=== PATIENT | female | born 1960 | race Caucasian/White ===

== ENCOUNTER 2021-06-13 20:12 | Inpatient (IN) | payer BC, SELFPAY ==
[2021-06-13] VITALS (11 sets, daily range): BP systolic 116–171; BP diastolic 54–97; PULSE 89–100; RESP 12–20; TEMP 36.8–38.1; O2SAT 94–99
--- NOTE | 2021-06-13 20:21 | DI.RAD.S_ITS ---
PROCEDURE: XR CHEST 1V INDICATIONS: suspected sepsis TECHNIQUE: One view of the chest was acquired. COMPARISON: None. FINDINGS: Surgical changes and devices: None. Lungs and pleura: Diffusely coarse interstitial markings. No focal consolidations. Mild peribronchial thickening. No effusion or pneumothorax. Mediastinum: Mediastinal contours appear normal. The heart is mildly enlarged. Bones and chest wall: No suspicious bony lesions. Overlying soft tissues appear unremarkable. IMPRESSION: 1. Mild peribronchial thickening and diffuse interstitial thickening may indicate a viral pneumonitis. No dense consolidations. 2. Mild cardiomegaly without CHF. Dictated by: Nga Carpenter M.D. on 06/13/2021 at 21:24 Approved by: Nga Carpenter M.D. on 06/13/2021 at 21:25
[2021-06-13] MEDS: SODIUM CHLORIDE 0.9% 2,313.33 ML 771.11 ML IV (20:35)
[2021-06-13] MEDS: KETOROLAC 30 MG/ML VIAL 15 MG IV (20:36)
[2021-06-13] MEDS: METOCLOPRAMIDE 10 MG/2 ML INJ IV (20:37)
[2021-06-13 20:56] LABS: Add Manual Diff / Slide Review NO; Basophils Absolute Auto 0 /uL (0-100); Basophils Percent Auto 0.1 % (0-2); Eosinophils Absolute Auto 100 /uL (0-450); Eosinophils Percent Auto 0.5 % (2-4); Hematocrit 40.9 % (36-46); Hemoglobin 13.7 g/dL (12.0-16.0); Lymphocytes Absolute Auto 800 /uL (1100-4500); Lymphocytes Percent Auto 6.5 % (25-40); Mean Corpuscular HGB Conc 33.4 % (30-36); Mean Corpuscular Hemoglobin 28.7 PG (26-34); Mean Corpuscular Volume 86.1 fL (80-100); Monocytes Absolute Auto 600 /uL (0-900); Monocytes Percent Auto 4.5 % (3-14); Neutrophils Absolute Auto 11400 /uL (1500-7000); Neutrophils Percent Auto 88.4 % (50-75); Platelet Count 190 X10^3/uL (150-400); Red Blood Cell Count 4.75 X10^6/uL (4.0-5.2); Red Cell Distribution Width 13.8 % (11.6-14.8); White Blood Cell Count 12.8 X10^3/uL (4.5-11.0)
--- NOTE | 2021-06-13 20:57 | PC.NURSE ---
Pt was recently dx with pancreatitis and a kidney stone. Hx of kidney stones. Was not started on an antbx on Monday.
[2021-06-13 21:03] LABS: Appearance Urine UA CLEAR; Bacteria Urine None Seen; Bilirubin Urine UA NEGATIVE (NEGATIVE); Color Urine UA YELLOW; Glucose Urine UA 1+ g/dL (Negative); Ketones Urine UA 3+ (NEGATIVE); Leukocyte Esterase Urine UA NEGATIVE (NEGATIVE); Nitrite Urine UA NEGATIVE (Negative); Occult Blood Urine UA TRACE-INTACT (Negative); Protein Urine UA TRACE (Negative); Urobilinogen Urine UA 0.2 E.U./dL (0.2)
[2021-06-13 21:06] LABS: Lactate (Lactic Acid) 1.2 mmol/L (0.7-2.1)
[2021-06-13 21:08] LABS: Alanine Aminotransferase 21 IU/L (<35); Albumin 4.5 g/dL (3.5-5.0); Albumin Globulin Ratio 1.5 (1.0-2.8); Alkaline Phosphatase 87 U/L (38-126); Aspartate Aminotransferase 29 IU/L (14-36); BUN Creatinine Ratio 22.6 (6-22); Bilirubin Total 0.7 mg/dL (0.2-1.3); Blood Urea Nitrogen 21 mg/dL (7-17); Calcium 9.5 mg/dL (8.4-10.2); Carbon Dioxide 21 mmol/L (22-32); Chloride 96 mmol/L (98-107); Estimated Glomerular Filt Rate > 60.0 mL/min (>60); Glucose 292 mg/dL (70-100); HEMOLYSIS 28 (0-50); Lipase 1042 U/L (23-300); Potassium 4.7 mmol/L (3.4-5.1); Sodium 132 mmol/L (137-145); Total Protein 7.5 g/dL (6.3-8.2)
[2021-06-13 21:09] LABS: Culture Indicated Urine Cult Not Indicated; RBC Urine 0-1/HPF (0-5/HPF); Squamous Epithelial Cell Urine 0-1 /HPF (0-5/HPF); WBC Urine 0-1/HPF (0-5/HPF)
--- NOTE | 2021-06-13 21:24 | DI.CT.S_ITS ---
PROCEDURE: CT ABDOMEN PELVIS W CON INDICATIONS: abdominal pain, fever, pancreatitis, recent kidney ston TECHNIQUE: After the administration of oral and IV contrast, axial sections were acquired from the lung bases to the pubic symphysis. Coronal and sagittal reformats were performed. For radiation dose reduction, the following was used: automated exposure control, adjustment of mA and/or kV according to patient size. COMPARISON: [facility], CT, CT ABDOMEN PELVIS WITH CONTRAST, 06/12/2021, 1:55. FINDINGS: Image quality: Excellent. Lung bases: Unremarkable. Heart: No significant findings. ABDOMEN: Liver: Unremarkable. Gallbladder: Surgically absent Biliary ducts: Unremarkable. Pancreas: Unremarkable. Spleen: Unremarkable. Adrenal Glands: Unremarkable. Kidneys and Ureters: Slight asymmetric uptake of IV contrast in the left kidney compared to the right. Mild hydronephrosis and perinephric inflammation, similar compared to prior. Moderate left hydroureter to the level of the pelvic inlet where a 9 mm stone is present, stable in position. There is slight increase in the degree of periureteric inflammation and inflammatory change around the left pericolic gutter. Punctate nonobstructing right intrarenal calculus. Stomach and Bowel: Stomach, small bowel loops, and colon are unremarkable. Normal appendix. Peritoneum: Mild inflammatory changes extend distally into the pelvis. No freely layering fluid or focal fluid collections. Ventral Wall: No hernia. Abdominal Nodes: No retroperitoneal or mesenteric adenopathy by size criteria. Vessels: Aorta and inferior vena cava are normal in size. PELVIS: Pelvic Organs: Uterus and ovaries are normal. Bladder: Unremarkable. Pelvic Nodes: No enlarged lymph nodes. Miscellaneous: No inguinal hernias are seen. Bones: Degenerative disc calcification at L4-5 and L5-S1. IMPRESSION: 1. Stable position of 9 mm left distal ureteral calcification at the pelvic inlet. 2. Slight worsening of perinephric and left retroperitoneal inflammation without significant change in the degree of hydronephrosis. 3. No movement in nonobstructing right intrarenal calcification. Dictated by: Nga Carpenter M.D. on 06/13/2021 at 22:10 Approved by: Nga Carpenter M.D. on 06/13/2021 at 22:19
[2021-06-13 21:27] LABS: Procalcitonin 0.09 ng/mL (<0.5)
[2021-06-13] MEDS: cefTRIAXone 2,000 MG in SODIUM CHLORIDE 0.9% 100 ML 200 ML IV (21:41)
[2021-06-13] MEDS: CIPROFLOXACIN 400 MG/200 ML PIGGYBACK 200 MG IV (22:13)
--- NOTE | 2021-06-13 23:53 | ED_ITS ---
HPI - Fever General Chief Complaint: Fever Stated Complaint: KIDNEY STONE LEFT SIDE PANCREATITIS FEVER Time Seen by Provider: 06/13/21 20:31 Source: patient Mode of arrival: Ambulatory Limitations: no limitations History of Present Illness HPI Narrative: This is a 60-year-old female who comes in with complaint of known pancreatitis as well as left-sided 9 mm kidney stone with symptoms that started on Monday. Patient was seen at [facility] was started on Flomax, [place] and Zofran with plan to follow-up in [place] after she flew back. Patient developed fever. She was 100.5 here in the department. Patient states she has had pancreatitis in the past and started after she was on Januvia many years a go. She typically does not get pain but has had occasionally. Monday she developed at each epigastric pain, bloating sensation and left flank pain that was sudden onset. She did not have any fevers until today. She has been having nausea and vomiting, she was discharged home from [facility] after being evaluated and continued to have vomiting even with Zofran. She has not had any dysuria, frequency or hematuria that she is appreciated. She has had normal bowel movements. No cough cold or congestion other than a chronic dry cough. No new chest pain or shortness of breath. History significant for sarcoidosis which she states is in her lungs. She is on metformin and occasional short-acting insulin for diabetes, losartan as well as potassium citrate. She does not use a long-acting insulin. She has had a cholecystectomy after her gallbladder became calcified. Cataract surgery and no other recent surgeries. She does have a urologist in [place] which is where she lives. No allergies to medications other than fatigue or makes her feel unwell and no tobacco, alcohol or illicit. Related Data Home Medications Medication Instructions Recorded Confirmed insulin regular human 100 unit/mL 15 sliding scale dose SUBCUT 3XW 06/14/21 06/14/21 injection solution (Novolin R Regular U-100 Insulin) losartan 25 mg tablet (Cozaar) 25 mg PO DAILY 06/14/21 06/14/21 metformin 500 mg tablet,extended 1,000 mg PO BID 06/14/21 06/14/21 release 24 hr potassium citrate 15 mEq (1,620 15 meq PO DAILY 06/14/21 06/14/21 mg) tablet,extended release Previous Rx's Medication Instructions Recorded hydrocodone 5 mg-acetaminophen 300 1 tab PO Q6HR PRN 7 Days #15 tab 06/15/21 mg tablet ondansetron 4 mg disintegrating 4 mg PO TID PRN 14 Days #30 tab 06/15/21 tablet tamsulosin 0.4 mg capsule (Flomax) 0.4 mg PO DAILY 30 Days #30 cap 06/15/21 Allergies Allergy/AdvReac Type Severity Reaction Status Date / Time latex Allergy Intermediate Rash Verified 06/14/21 15:32 promethazine [From Phenergan] AdvReac Intermediate Irritable Verified 06/13/21 21:34 Review of Systems Review of Systems ROS Unobtainable: All systems reviewed & are unremarkable except as noted in HPI and below Patient History Medical History Diabetes type 2, uncontrolled Essential hypertension Recurrent kidney stones Sarcoidosis Surgical History Hx of cataract surgery Hx of cholecystectomy Family History Mother Myocardial infarction CAD (coronary artery disease) Father Myocardial infarction Diabetes mellitus Social History household members: family Smoking Status: Never smoker alcohol intake: never Exam Narrative Exam Narrative: GENERAL: Alert and oriented x three, female in moderate distress. HEENT: Head normocephalic, atraumatic, EOMI, pupils reactive, face symmetric, moist mucous membranes NECK: Supple, full range of motion CARDIOVASCULAR: Regular rate and rhythm without murmurs, rubs or gallops. RESPIRATORY: Breath sounds equal bilaterally, no wheezes rales or rhonchi. ABDOMEN: Soft, nontender. Normoactive bowel sounds all 4 quadrants. No guarding or rebound, rigidity, no mass : No CVA tenderness bilaterally. EXTREMITIES: Normal range of motion, no clubbing or edema. Neurovascularly intact NEUROLOGICAL: Cranial nerves II through XII grossly intact. Moving all extremities SKIN: Warm, dry, no petechiae, no rashes or lesions. Initial Vital Signs Initial Vital Signs: Vital Signs Temperature 100.5 F H 06/13/21 20:21 Pulse Rate 98 H 06/13/21 20:21 Respiratory Rate 20 06/13/21 20:21 Blood Pressure 171/97 H 06/13/21 20:21 Pulse Oximetry 99 06/13/21 20:21 Course Orders Ordered: Discontinued Medications Acetaminophen (Acetaminophen 325 Mg Tablet) 650 mg PO Q6HR PRN PRN Reason: Fever/Mild Pain (1-3) Acetaminophen (Acetaminophen 325 Mg Tablet) 650 mg PO Q4H PRN PRN Reason: Pain, Mild (1-3) Last Admin: 06/15/21 08:03 Dose: 650 mg Documented by: JUAN MANUEL Hydrocodone Bitart/Acetaminophen (Hydrocodone/Acet 5/325 Tablet) 1 tab PO Q6H PRN PRN Reason: pain Last Admin: 06/15/21 08:49 Dose: 1 tab Documented by: JUAN MANUEL Admin: 06/14/21 23:37 Dose: 1 tab Documented by: RICHMOND Cefazolin Sodium (Cefazolin 1 Gm Vial) 2 gm IV NOW ONE Stop: 06/14/21 10:07 Last Admin: 06/14/21 16:25 Dose: 2 gm Documented by: Admin: 06/14/21 10:22 Dose: 2 gm Documented by: CARLTON Dextrose (Dextrose 50 % In Water 25 Gm/50 Ml Syringe) 25 gm IV PRN PRN PRN Reason: Hypoglycemia Dextrose (Dextrose 50 % In Water 25 Gm/50 Ml Syringe) 25 gm IV PRN PRN PRN Reason: Hypoglycemia Dextrose (Dextrose 50 % In Water 25 Gm/50 Ml Syringe) 25 gm IV PRN PRN PRN Reason: Hypoglycemia Diphenhydramine HCl (Diphenhydramine 50 Mg/Ml Vial) 25 mg IV Q6H PRN PRN Reason: Itching Enoxaparin Sodium (Enoxaparin 40 Mg/0.4 Ml Syringe) 40 mg SUBCUT DAILY TRUPTI Fentanyl (Fentanyl 100 Mcg/2 Ml Inj) 0 mcg IV Q5M PRN PRN Reason: Pain, Moderate (4-6) Sodium Chloride (Normal Saline 0.9%) 1,000 mls @ 1,000 mls/hr IV BOLUS ONE Stop: 06/13/21 21:20 Last Admin: 06/13/21 20:40 Dose: Not Given Documented by: CLOVIS Sodium Chloride (Normal Saline 0.9%) 2,313.33 mls @ 771.11 mls/hr 30 ml/kg infuse over 3 hr (2313.33 ml) IV NOW ONE Stop: 06/13/21 23:30 Last Infusion: 06/13/21 23:33 Dose: 0 mls/hr Documented by: Admin: 06/13/21 20:35 Dose: 771.11 mls/hr Documented by: CLOVIS Ciprofloxacin (Cipro) 400 mg in 200 mls @ 200 mls/hr IV NOW ONE Stop: 06/13/21 22:23 Last Infusion: 06/13/21 23:50 Dose: 0 mls/hr Documented by: Admin: 06/13/21 22:13 Dose: 200 mls/hr Documented by: CLOVIS Ceftriaxone Sodium 2,000 mg/ (Sodium Chloride) 100 mls @ 200 mls/hr IV NOW ONE Stop: 06/13/21 21:26 Last Infusion: 06/13/21 22:13 Dose: 0 mls/hr Documented by: Admin: 06/13/21 21:41 Dose: 200 mls/hr Documented by: CLOVIS Sodium Chloride (Normal Saline 0.9%) 1,000 mls @ 125 mls/hr IV CONT TRUPTI Last Admin: 06/14/21 01:55 Dose: 125 mls/hr Documented by: BLANCHE Sodium Chloride (Normal Saline 0.9%) 1,000 mls @ 100 mls/hr IV CONT TRUPTI Last Admin: 06/14/21 02:42 Dose: Not Given Documented by: BLANCHE Ceftriaxone Sodium 1,000 mg/ (Sodium Chloride) 100 mls @ 200 mls/hr IV Q24H TRUPTI Lactated Ringer's (Lactated Ringers) 500 mls @ 25 mls/hr IV CONT TRUPTI Last Admin: 06/14/21 12:30 Dose: 25 mls/hr Documented by: CARLTON Lactated Ringer's (Lactated Ringers) 1,000 mls @ 42 mls/hr IV CONT TRUPTI Last Admin: 06/14/21 19:15 Dose: Not Given Documented by: AUGUSTA Dextrose/Sodium Chloride (Dextrose 5%-0.45% Ns) 1,000 mls @ 125 mls/hr IV CONT TRUPTI Last Infusion: 06/14/21 19:05 Dose: 0 mls/hr Documented by: Admin: 06/14/21 17:58 Dose: 125 mls/hr Documented by: ZACHARY Insulin Glargine (Insulin Glargine 100 Unit/Ml 3ml Pen) 10 unit SUBCUT BID [facility] Last Admin: 06/14/21 10:17 Dose: 10 unit Documented by: CARLTON Cosigned by: ANITHA Admin: 06/14/21 02:56 Dose: 10 unit Documented by: BLANCHE Cosigned by: JAKY Insulin Glargine (Insulin Glargine 100 Unit/Ml 3ml Pen) 10 unit SUBCUT BID [facility] Last Admin: 06/15/21 08:04 Dose: 10 unit Documented by: JUAN MANUEL Hopkinsigned by: CARLTON Admin: 06/14/21 21:48 Dose: 10 unit Documented by: AUGUSTA Cosigned by: ZACHARY Insulin Human Lispro (Insulin Lispro 100 Unit/Ml 3ml Vial) 0 unit SUBCUT [facility]; Protocol Insulin Human Lispro (Insulin Lispro 100 Unit/Ml 3ml Vial) 0 unit SUBCUT [facility]; Protocol Last Admin: 06/14/21 19:15 Dose: Not Given Documented by: Admin: 06/14/21 12:30 Dose: Not Given Documented by: Admin: 06/14/21 10:16 Dose: 3 unit Documented by: CARLTON Reyez by: ANITHA Insulin Human Lispro (Insulin Lispro 100 Unit/Ml 3ml Vial) 0 unit SUBCUT [facility]; Protocol Last Admin: 06/15/21 08:05 Dose: 5 unit Documented by: JUAN MANUEL Hopkisnigned by: CARLTON Admin: 06/14/21 21:47 Dose: 3 unit Documented by: AUGUSTA Cosigned by: ZACHARY Admin: 06/14/21 18:27 Dose: 5 unit Documented by: AUGUSTA Hopkinsigned by: ZACHARY Insulin Human Regular (Insulin Regular 100 Unit/Ml 3 Ml Vial) unit SUBCUT 3XW TRUPTI Ketorolac Tromethamine (Ketorolac 30 Mg/Ml Vial) 15 mg IV NOW ONE Stop: 06/13/21 20:32 Last Admin: 06/13/21 20:36 Dose: 15 mg Documented by: CLOVIS Ketorolac Tromethamine (Ketorolac 30 Mg/Ml Vial) 30 mg IV Q6HR PRN PRN Reason: Pain, Severe (7-10) Stop: 06/19/21 00:40 Ketorolac Tromethamine (Ketorolac 30 Mg/Ml Vial) 15 mg IV Q6HR PRN PRN Reason: Pain, Severe (7-10) Stop: 06/19/21 00:40 Last Admin: 06/14/21 14:22 Dose: 15 mg Documented by: CARLTON Losartan Potassium (Losartan 25 Mg Tablet) 25 mg PO DAILY [facility] Last Admin: 06/15/21 08:32 Dose: 25 mg Documented by: JUAN MANUEL Metformin HCl (Metformin Xr 500 Mg Tablet) 1,000 mg PO BID [facility] Metoclopramide HCl (Metoclopramide 10 Mg/2 Ml Inj) 10 mg IV NOW ONE Stop: 06/13/21 20:32 Last Admin: 06/13/21 20:37 Dose: 10 mg Documented by: CLOVIS Metoclopramide HCl (Metoclopramide 10 Mg/2 Ml Inj) 10 mg IV Q6HR PRN PRN Reason: Nausea And Vomiting Morphine Sulfate (Morphine 2 Mg/Ml Inj) 2 mg IV Q2H PRN PRN Reason: Pain, Severe (7-10) Naloxone HCl (Naloxone 0.4 Mg/Ml Vial) 0.2 mg IV Q2MIN PRN PRN Reason: Opiate Reversal Naloxone HCl (Naloxone 0.4 Mg/Ml Vial) 0.2 mg IV Q2MIN PRN PRN Reason: Opiate Reversal Non-Formulary Medication (Dulaglutide [Trulicity]) 3 mg SUBCUT WEEKLY [facility] Nf - Potassium Citrate 15 Meq Tablet Er 15 meq PO DAILY [facility] Ondansetron HCl (Ondansetron 4 Mg/2 Ml Inj) 4 mg IV Q6HR PRN PRN Reason: Nausea And Vomiting Ondansetron HCl (Ondansetron 4 Mg/2 Ml Inj) 4 mg IV NOW PRN PRN Reason: Nausea And Vomiting Ondansetron HCl (Ondansetron 4 Mg Odt) 4 mg PO TID PRN PRN Reason: nausea. Ondansetron HCl (Ondansetron 4 Mg/2 Ml Inj) 4 mg IV Q6H PRN PRN Reason: Nausea And Vomiting Oxycodone/Acetaminophen (Oxycodone/Acetaminophen 5/325 Tablet) 1 tab PO PACUNOW PRN PRN Reason: Mild or Moderate Pain Oxycodone/Acetaminophen (Oxycodone/Acetaminophen 5/325 Tablet) 1 tab PO Q4H PRN PRN Reason: Pain, Moderate (4-6) Sodium Chloride (Sodium Chloride 0.9% Flush) 10 ml IV PRN PRN PRN Reason: Flush Sodium Chloride (Sodium Chloride 0.9% Flush) 10 ml IV BID [facility] Last Admin: 06/15/21 08:06 Dose: 10 ml Documented by: JUAN MANUEL Tamsulosin HCl (Tamsulosin 0.4 Mg Capsule) 0.4 mg PO NOW ONE Stop: 06/14/21 00:28 Last Admin: 06/14/21 00:37 Dose: 0.4 mg Documented by: CLOVIS Tamsulosin HCl (Tamsulosin 0.4 Mg Capsule) 0.4 mg PO DAILY [facility] Last Admin: 06/15/21 08:03 Dose: 0.4 mg Documented by: JUAN MANUEL Consultations Consultation #1: Dr. Vallejo, with Urology is happy to see patient in the morning. He will have to evaluate if her pancreatitis is any contraindication for her kidney stone. We discussed she has been febrile, she technically meet septic criteria but her procalcitonin is negative with a urine that only shows blood and no other obvious infectious changes. Cultures are pending. Patient was covered with antibiotics but does not appear to be septic from obstructed kidney stone which does not show signs of infection at this time. Consultation #2: AMARA Ferreira, patient is accepted. Discussed patient has multiple issues including pancreatitis with rising lipase, 9 mm kidney stone with stable renal function but patient is febrile, technically meet septic criteria the heart rate of 90, white count 12.8 with a negative procalcitonin and normotensive in the setting of negative ua. Cultures blood and urine are pending. But patient was having uncontrolled pain at home as well as intractable vomiting. We also reviewed patient's chest x-ray which may be secondary to her sarcoid but a COVID testing is pending. Vital Signs Vital signs: Vital Signs - 8 hr 06/13/21 20:21 06/13/21 20:51 06/13/21 20:53 Temperature 100.5 F H Pulse Rate 98 H 98 H 96 H Respiratory Rate 20 19 Blood Pressure 171/97 H 169/73 H Pulse Oximetry 99 96 99 06/13/21 21:00 06/13/21 21:30 06/13/21 21:41 Temperature Pulse Rate 99 H 94 H 100 H Respiratory Rate 20 12 19 Blood Pressure 158/62 H 146/66 H 150/71 H Pulse Oximetry 99 99 98 06/13/21 22:00 06/13/21 22:30 06/13/21 23:00 Temperature Pulse Rate 95 H 91 H 93 H Respiratory Rate 12 16 16 Blood Pressure 143/67 H 116/54 L 129/61 Pulse Oximetry 96 94 99 06/13/21 23:10 06/13/21 23:30 Temperature 98.2 F Pulse Rate 95 H 89 Respiratory Rate 15 17 Blood Pressure 141/64 H 135/62 Pulse Oximetry 97 99 MDM - Fever Lab Data Result diagrams: 06/14/21 12:37 06/14/21 12:37 Labs: Lab Results 06/13/21 06/13/21 06/13/21 Range/Units 20:22 20:22 20:22 WBC 12.8 H (4.5-11.0) X10^3/uL RBC 4.75 (4.0-5.2) X10^6/uL Hgb 13.7 (12.0-16.0) g/dL Hct 40.9 (36-46) % MCV 86.1 (80-100) fL MCH 28.7 (26-34) PG MCHC 33.4 (30-36) % RDW 13.8 (11.6-14.8) % Plt Count 190 (150-400) X10^3/uL Neut % (Auto) 88.4 H (50-75) % Lymph % (Auto) 6.5 L (25-40) % Love % (Auto) 4.5 (3-14) % Eos % (Auto) 0.5 L (2-4) % Baso % (Auto) 0.1 (0-2) % Neut # (Auto) 14594 H (5762-3108) /uL Lymph # (Auto) 800 L (7868-4339) /uL Love # (Auto) 600 (0-900) /uL Eos # (Auto) 100 (0-450) /uL Baso # (Auto) 0 (0-100) /uL Sodium 132 L (137-145) mmol/L Potassium 4.7 (3.4-5.1) mmol/L Chloride 96 L (98-107) mmol/L Carbon Dioxide 21 L (22-32) mmol/L BUN 21 H (7-17) mg/dL Creatinine 0.93 (0.52-1.04) mg/dL Estimated GFR > 60.0 (>60) mL/min BUN/Creatinine Ratio 22.6 H (6-22) Glucose 292 H (70-100) mg/dL Hemoglobin A1c (4.0-6.0) % Lactate 1.2 (0.7-2.1) mmol/L Calcium 9.5 (8.4-10.2) mg/dL Magnesium (1.6-2.3) mg/dL Total Bilirubin 0.7 (0.2-1.3) mg/dL AST 29 (14-36) IU/L ALT 21 (<35) IU/L Alkaline Phosphatase 87 (38-126) U/L Total Protein 7.5 (6.3-8.2) g/dL Albumin 4.5 (3.5-5.0) g/dL Globulin 3.0 (1.7-4.1) g/dL Albumin/Globulin Ratio 1.5 (1.0-2.8) Lipase 1042 H (23-300) U/L Procalcitonin 0.09 (<0.5) ng/mL Urine Color Urine Appearance Urine pH (4.5-8.0) Ur Specific Wil[place] (1.000-1.035) Urine Protein (Negative) Urine Glucose (UA) (Negative) g/dL Urine Ketones (NEGATIVE) Urine Occult Blood (Negative) Urine Nitrate (Negative) Urine Bilirubin (NEGATIVE) Urine Urobilinogen (0.2) E.U./dL Ur Leukocyte Esterase (NEGATIVE) Urine RBC (0-5/HPF) Urine WBC (0-5/HPF) Ur Squamous Epith Cells (0-5/HPF) Urine Bacteria (None) Ur Culture Indicated? SARS-CoV-2 (PCR) (Negative) 06/13/21 06/13/21 06/13/21 Range/Units 20:22 20:22 20:43 WBC (4.5-11.0) X10^3/uL RBC (4.0-5.2) X10^6/uL Hgb (12.0-16.0) g/dL Hct (36-46) % MCV (80-100) fL MCH (26-34) PG MCHC (30-36) % RDW (11.6-14.8) % Plt Count (150-400) X10^3/uL Neut % (Auto) (50-75) % Lymph % (Auto) (25-40) % Love % (Auto) (3-14) % Eos % (Auto) (2-4) % Baso % (Auto) (0-2) % Neut # (Auto) (0115-6780) /uL Lymph # (Auto) (9241-9135) /uL Love # (Auto) (0-900) /uL Eos # (Auto) (0-450) /uL Baso # (Auto) (0-100) /uL Sodium (137-145) mmol/L Potassium (3.4-5.1) mmol/L Chloride (98-107) mmol/L Carbon Dioxide (22-32) mmol/L BUN (7-17) mg/dL Creatinine (0.52-1.04) mg/dL Estimated GFR (>60) mL/min BUN/Creatinine Ratio (6-22) Glucose (70-100) mg/dL Hemoglobin A1c 10.4 H (4.0-6.0) % Lactate (0.7-2.1) mmol/L Calcium (8.4-10.2) mg/dL Magnesium 1.8 (1.6-2.3) mg/dL Total Bilirubin (0.2-1.3) mg/dL AST (14-36) IU/L ALT (<35) IU/L Alkaline Phosphatase (38-126) U/L Total Protein (6.3-8.2) g/dL Albumin (3.5-5.0) g/dL Globulin (1.7-4.1) g/dL Albumin/Globulin Ratio (1.0-2.8) Lipase (23-300) U/L Procalcitonin (<0.5) ng/mL Urine Color Yellow Urine Appearance Clear Urine pH 5.0 (4.5-8.0) Ur Specific Wil[place] 1.020 (1.000-1.035) Urine Protein Trace H (Negative) Urine Glucose (UA) 1+ H (Negative) g/dL Urine Ketones 3+ H (NEGATIVE) Urine Occult Blood Trace-intact (Negative) Urine Nitrate Negative (Negative) Urine Bilirubin Negative (NEGATIVE) Urine Urobilinogen 0.2 (0.2) E.U./dL Ur Leukocyte Esterase Negative (NEGATIVE) Urine RBC 0-1/hpf (0-5/HPF) Urine WBC 0-1/hpf (0-5/HPF) Ur Squamous Epith Cells 0-1 /hpf (0-5/HPF) Urine Bacteria None seen (None) Ur Culture Indicated? Cult not indicated SARS-CoV-2 (PCR) (Negative) 06/14/21 Range/Units 00:18 WBC (4.5-11.0) X10^3/uL RBC (4.0-5.2) X10^6/uL Hgb (12.0-16.0) g/dL Hct (36-46) % MCV (80-100) fL MCH (26-34) PG MCHC (30-36) % RDW (11.6-14.8) % Plt Count (150-400) X10^3/uL Neut % (Auto) (50-75) % Lymph % (Auto) (25-40) % Love % (Auto) (3-14) % Eos % (Auto) (2-4) % Baso % (Auto) (0-2) % Neut # (Auto) (3135-0650) /uL Lymph # (Auto) (2136-8355) /uL Love # (Auto) (0-900) /uL Eos # (Auto) (0-450) /uL Baso # (Auto) (0-100) /uL Sodium (137-145) mmol/L Potassium (3.4-5.1) mmol/L Chloride (98-107) mmol/L Carbon Dioxide (22-32) mmol/L BUN (7-17) mg/dL Creatinine (0.52-1.04) mg/dL Estimated GFR (>60) mL/min BUN/Creatinine Ratio (6-22) Glucose (70-100) mg/dL Hemoglobin A1c (4.0-6.0) % Lactate (0.7-2.1) mmol/L Calcium (8.4-10.2) mg/dL Magnesium (1.6-2.3) mg/dL Total Bilirubin (0.2-1.3) mg/dL AST (14-36) IU/L ALT (<35) IU/L Alkaline Phosphatase (38-126) U/L Total Protein (6.3-8.2) g/dL Albumin (3.5-5.0) g/dL Globulin (1.7-4.1) g/dL Albumin/Globulin Ratio (1.0-2.8) Lipase (23-300) U/L Procalcitonin (<0.5) ng/mL Urine Color Urine Appearance Urine pH (4.5-8.0) Ur Specific [place] (1.000-1.035) Urine Protein (Negative) Urine Glucose (UA) (Negative) g/dL Urine Ketones (NEGATIVE) Urine Occult Blood (Negative) Urine Nitrate (Negative) Urine Bilirubin (NEGATIVE) Urine Urobilinogen (0.2) E.U./dL Ur Leukocyte Esterase (NEGATIVE) Urine RBC (0-5/HPF) Urine WBC (0-5/HPF) Ur Squamous Epith Cells (0-5/HPF) Urine Bacteria (None) Ur Culture Indicated? SARS-CoV-2 (PCR) Negative (Negative) Point of Care Testing Glucose POC 301 Imaging Data Chest x-ray: Radiologist's Impression: Byron Perera G 60 F [address] [id number] ReportSigned Patient: Byron Perera GMR#: [id number]: 1960cct:[id number]/Sex: 60 / FDate of Service: 06/13/21Loc: EDAccession Number: [id number] Procedure: XR chest 1V Ordering Provider: Laurence Benavidez D.O. PROCEDURE: XR CHEST 1V INDICATIONS: suspected sepsis TECHNIQUE: One view of the chest was acquired. COMPARISON: None. FINDINGS: Surgical changes and devices: None. Lungs and pleura: Diffusely coarse interstitial markings. No focal consolidations. Mild peribronchial thickening. No effusion or pneumothorax. Mediastinum: Mediastinal contours appear normal. The heart is mildly enlarged. Bones and chest wall: No suspicious bony lesions. Overlying soft tissues appear unremarkable. IMPRESSION: 1. Mild peribronchial thickening and diffuse interstitial thickening may indicate a viral pneumonitis. No dense consolidations. 2. Mild cardiomegaly without CHF. Dictated by: Nga Carpenter M.D. on 06/13/2021 at 21:24 Approved by: Nga Carpenter M.D. on 06/13/2021 at 21:25 CT scan - abdomen/pelvis: Radiologist's Impression: [address] [id number] Scan ReportSigned Patient: Byron Perera GMR#: [id number]: 1960cct:[id number]/Sex: 60 / FDate of Service: 06/13/21Loc: EDAccession Number: [id number] Procedure: CT abdomen pelvis w con Ordering Provider: Laurence Benavidez D.O. PROCEDURE: CT ABDOMEN PELVIS W CON INDICATIONS: abdominal pain, fever, pancreatitis, recent kidney ston TECHNIQUE: After the administration of oral and IV contrast, axial sections were acquired from the lung bases to the pubic symphysis. Coronal and sagittal reformats were performed. For radiation dose reduction, the following was used: automated exposure control, adjustment of mA and/or kV according to patient size. COMPARISON: [facility], CT, CT ABDOMEN PELVIS WITH CONTRAST, 06/12/2021, 1:55. FINDINGS: Image quality: Excellent. Lung bases: Unremarkable. Heart: No significant findings. ABDOMEN: Liver: Unremarkable. Gallbladder: Surgically absent Biliary ducts: Unremarkable. Pancreas: Unremarkable. Spleen: Unremarkable. Adrenal Glands: Unremarkable. Kidneys and Ureters: Slight asymmetric uptake of IV contrast in the left kidney compared to the right. Mild hydronephrosis and perinephric inflammation, similar compared to prior. Moderate left hydroureter to the level of the pelvic inlet where a 9 mm stone is present, stable in position. There is slight increase in the degree of periureteric inflammation and inflammatory change around the left pericolic gutter. Punctate nonobstructing right intrarenal calculus. Stomach and Bowel: Stomach, small bowel loops, and colon are unremarkable. Normal appendix. Peritoneum: Mild inflammatory changes extend distally into the pelvis. No freely layering fluid or focal fluid collections. Ventral Wall: No hernia. Abdominal Nodes: No retroperitoneal or mesenteric adenopathy by size criteria. Vessels: Aorta and inferior vena cava are normal in size. PELVIS: Pelvic Organs: Uterus and ovaries are normal. Bladder: Unremarkable. Pelvic Nodes: No enlarged lymph nodes. Miscellaneous: No inguinal hernias are seen. Bones: Degenerative disc calcification at L4-5 and L5-S1. IMPRESSION: 1. Stable position of 9 mm left distal ureteral calcification at the pelvic inlet. 2. Slight worsening of perinephric and left retroperitoneal inflammation without significant change in the degree of hydronephrosis. 3. No movement in nonobstructing right intrarenal calcification. Dictated by: Nga Carpenter M.D. on 06/13/2021 at 22:10 Approved by: Nga Carpenter M.D. on 06/13/2021 at 22:19 ECG Data Attestation: I personally reviewed and interpreted this ECG as follows: Prior ECG tracings: not available for review Interpretation: Sinus rhythm rate of 98 HI 148 QRS 84 and QTC of 434. No acute ST elevation noted. MDM Narrative Medical decision making narrative: This is a 60-year-old female who comes in with complaint of left-sided kidney stone, known pancreatitis seen several days ago at outside facility. Patient's lipase it has increased and doubled from the 500 range to a 1000. Left kidney stone is 9 mm without any movement. No worsening hydro or renal function. Patient meets septic criteria with SIRS but clear source is not found she was covered from a renal stone perspective as well as pneuomonia and pancreatitis. Patient has had difficulty controlling his pain and has been nauseous and vomiting at home despite oral antiemetics. CT does not show any necrotizing pancreatitis. Patient's chest x-ray does show some change but she does have a history of sarcoid in her lungs. COVID swab is negative. Unclear exact source of fever. Cultures are pending blood as well as urine. Case was discussed with Urology she was likely benefit from intervention but does not need emergent intervention at this moment. Patient was accepted by AMARA Ferreira for hospitalization. Discharge Plan Departure Patient Disposition: Admitted As Inpatient Clinical Impression: Kidney stone on left side, Acute pancreatitis, SIRS (systemic inflammatory response syndrome) Admit Date/Time: 06/14/21 00:30 Admit Provider: Selena Ferreira
[2021-06-14] VITALS (20 sets, daily range): BP systolic 115–151; BP diastolic 55–79; PULSE 86–861; RESP 15–18; TEMP 36.1–37.5; O2SAT 95–99; BMI 29.2; BMI 31.4
--- NOTE | 2021-06-14 | DI.RAD.S_ITS ---
PROCEDURE: XR KUB INDICATIONS: Left ureteral calculus TECHNIQUE: One view of the abdomen acquired. COMPARISON: [facility], CT, CT ABDOMEN PELVIS W CON, 06/13/2021, 21:31. FINDINGS: Surgical changes and devices: None. Bowel: Bowel gas pattern is normal. Soft tissues: No suspicious abdominal calcifications. Visualized solid organ contours appear normal in size. The left ureteral calculus which was present at approximately S2 on yesterday's CT is not positively identified on plain film. Bones: No suspicious bony lesions. IMPRESSION: The known left ureteral calculus, as of yesterday, is not identified on plain films. It may potentially overlie bony structures. Dictated by: Callum Francisco M.D. on 06/14/2021 at 10:40 Approved by: Callum Francisco M.D. on 06/14/2021 at 10:42
--- NOTE | 2021-06-14 | DI.RAD.S_ITS ---
PROCEDURE: XR ABDOMEN 1V INDICATIONS: LEFT STENT PLACEMENT TECHNIQUE: One view of the abdomen acquired. COMPARISON: [facility], CR, XR KUB, 06/14/2021, 10:10. [facility], CT, CT ABDOMEN PELVIS W CON, 06/13/2021, 21:31. FINDINGS: Left ureteral stent placement. The catheter tip is coiled in the region of the renal pelvis. No kidney stone seen. IMPRESSION: Intraoperative guidance provided. Dictated by: Rich Machuca M.D. on 06/14/2021 at 17:16 Approved by: Rich Machuca M.D. on 06/14/2021 at 17:17
[2021-06-14] MEDS: TAMSULOSIN 0.4 MG CAPSULE PO (00:37)
[2021-06-14 01:03] LABS: COVID19 - ADMIT (NP swab/PCR) Negative (Negative)
[2021-06-14 01:17] LABS: Magnesium 1.8 mg/dL (1.6-2.3)
[2021-06-14 01:30] LABS: Hemoglobin A1C% w Est Avg Glu 10.4 % (4.0-6.0)
[2021-06-14] MEDS: SODIUM CHLORIDE 0.9% 1,000 ML 125 ML IV (01:55)
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
--- NOTE | 2021-06-14 02:38 | PC.NURSE ---
Pt. admitted from ER accompanied by her sisters. Oriented to room 210, denies any pain & nausea upon admission. Oriented to her room & showed her call light TV & bed controls. Encouraged to call for assistance if she needed to get up OOB to the BR. No history of any fall , will cont. POC & monitor.
[2021-06-14] MEDS: INSULIN GLARGINE 100 UNIT/ML 3ML PEN 10 UNIT SUBCUT ×3 (02:56→21:48)
--- NOTE | 2021-06-14 09:34 | CM.DANOTE ---
DCP: Case received, EMR reviewed and met with patient. Sister, Rehana, was also at bedside. Introduced self and role. Was able to obtain information regarding patient's baseline activity level prior to hospitalization, as well as her current living situation. DCP assessment completed with information currently available. Patient is a 60 year old female who admitted early this morning to the care of the hospitalist team. PCP: Dr. Caballero in [place]. Payer: confirmed: [employer] out of [place]. Patient came to the hospital via private vehicle secondary to having fever, as well as abdominal discomfort. Patient was diagnosed with pancrreatitis. Patient has also had recent kidney stones. She has history of diabetes type 2, and is managed by her provider in [place]. Met with patient in her room. Sister, Rehana, was also in the room. Patient is here from [place], visiting her elderly father in [facility]. She then developed these symptoms. She is independent at her baseline, confirmed that she has insurance, did not have her card on her at the time of admission. P: DCP to continue to follow. Patient should be able to go home when medically stable. Gina Rob RN/Nurse Private Duty
[2021-06-14] MEDS: INSULIN LISPRO 100 UNIT/ML 3ML VIAL SUBCUT ×3 (10:16→21:47)
[2021-06-14] MEDS: CEFAZOLIN 1 GM VIAL 2 GM IV ×2 (10:22→16:25)
[2021-06-14] MEDS: LACTATED RINGERS 500 ML 25 ML IV (12:30)
[2021-06-14 12:42] LABS: Add Manual Diff / Slide Review NO; Basophils Absolute Auto 0 /uL (0-100); Basophils Percent Auto 0.2 % (0-2); Eosinophils Absolute Auto 100 /uL (0-450); Eosinophils Percent Auto 0.9 % (2-4); Hematocrit 32.5 % (36-46); Hemoglobin 11.2 g/dL (12.0-16.0); Lymphocytes Absolute Auto 1100 /uL (1100-4500); Lymphocytes Percent Auto 17.4 % (25-40); Mean Corpuscular HGB Conc 34.3 % (30-36); Mean Corpuscular Hemoglobin 29.4 PG (26-34); Mean Corpuscular Volume 85.6 fL (80-100); Monocytes Absolute Auto 500 /uL (0-900); Monocytes Percent Auto 8.1 % (3-14); Neutrophils Absolute Auto 4600 /uL (1500-7000); Neutrophils Percent Auto 73.4 % (50-75); Platelet Count 144 X10^3/uL (150-400); Red Blood Cell Count 3.79 X10^6/uL (4.0-5.2); Red Cell Distribution Width 13.6 % (11.6-14.8); White Blood Cell Count 6.2 X10^3/uL (4.5-11.0)
[2021-06-14 12:54] LABS: BUN Creatinine Ratio 20.9 (6-22); Blood Urea Nitrogen 14 mg/dL (7-17); Calcium 8.6 mg/dL (8.4-10.2); Carbon Dioxide 22 mmol/L (22-32); Chloride 107 mmol/L (98-107); Estimated Glomerular Filt Rate > 60.0 mL/min (>60); Glucose 239 mg/dL (70-100); HEMOLYSIS < 15 (0-50); Potassium 4.2 mmol/L (3.4-5.1); Sodium 135 mmol/L (137-145)
[2021-06-14 13:48] LABS: Triglycerides 131 mg/dL (35-150)
[2021-06-14] MEDS: KETOROLAC 30 MG/ML VIAL 15 MG IV (14:22)
--- NOTE | 2021-06-14 15:44 | PM.CN ---
History of Present Illness Consult details Date Patient Seen: 06/14/21 Time Patient Seen: 02:15 Chief complaint: Left sided renal calculi, pancreatitis, pain Reason for consult: Obstructing 8 mm left ureteral calculus Requesting provider: Laurence Benavidez Narrative: The patient is the 60-year-old white female who presented recently to [facility] for evaluation of abdominal pain. Uncertain of white working diagnoses were or discharge diagnoses or studies or treatments provided. At any rate, she presented to the [facility] ED yesterday with complaint of left-sided flank pain and epigastric pain. CT of abdomen pelvis demonstrated an 8 mm, obstructing left distal ureteral calculus. The stones located at the pelvic inlet, probably at or near the juncture of the middle and distal 3rd of the left ureter. She has a previous history of stones x2 in the late 80s. They passed without need for intervention. The patient also has a history of pancreatitis and is admitted because of concerns regarding possible sepsis. In addition to presenting laboratories, she had a fever as well. Urinalysis was devoid of white cells bacteria or nitrite positivity. The patient resides in the [facility]. Meds Home Medications and Allergies Home Medications Medication Instructions Recorded Confirmed Type dulaglutide 3 mg/0.5 mL 3 mg SUBCUT WEEKLY 06/14/21 06/14/21 History subcutaneous pen injector (Trulicity) hydrocodone 5 mg-acetaminophen 300 1 tab PO Q6HR PRN 06/14/21 06/14/21 History mg tablet insulin regular human 100 unit/mL 15 sliding scale dose SUBCUT 3XW 06/14/21 06/14/21 History injection solution (Novolin R Regular U-100 Insulin) losartan 25 mg tablet (Cozaar) 25 mg PO DAILY 06/14/21 06/14/21 History metformin 500 mg tablet,extended 1,000 mg PO BID 06/14/21 06/14/21 History release 24 hr ondansetron 4 mg disintegrating 4 mg PO TID PRN 06/14/21 06/14/21 History tablet potassium citrate 15 mEq (1,620 15 meq PO DAILY 06/14/21 06/14/21 History mg) tablet,extended release tamsulosin 0.4 mg capsule (Flomax) 0.4 mg PO DAILY 06/14/21 06/14/21 History Allergies Allergy/AdvReac Type Severity Reaction Status Date / Time latex Allergy Intermediate Rash Verified 06/14/21 15:32 promethazine [From Phenergan] AdvReac Intermediate Irritable Verified 06/13/21 21:34 Review of Systems Review of Systems ROS: Yes All systems reviewed with the patient and are negative except as otherwise documented Exam Vital Signs (past 8 hours): - 06/14/21 08:00 06/14/21 09:07 06/14/21 12:00 Temperature 98 F 98 F Pulse Rate 90 87 Respiratory Rate 16 16 Blood Pressure 136/63 130/63 Pulse Oximetry 98 97 97 06/14/21 15:05 Temperature 99.5 F Pulse Rate 102 H Respiratory Rate 16 Blood Pressure 151/78 H Pulse Oximetry 98 Oxygen Delivery Method Room Air Oxygen Flow Rate 0 Narrative Exam Narrative: He is a well-developed and nourished white female in no acute distress visiting with 1 of her sisters. Head/neck-sclera clear and pupils are round and equal bilateral. No visible evidence of adenopathy or JVD. Chest-clear, equal, and unlabored expansion bilaterally. Heart-normal sinus rhythm Objective Labs Result Diagrams: 06/14/21 12:37 06/14/21 12:37 Labs: Laboratory Results - last 24 hr 06/13/21 06/13/21 06/13/21 20:22 20:22 20:22 WBC 12.8 H RBC 4.75 Hgb 13.7 Hct 40.9 MCV 86.1 MCH 28.7 MCHC 33.4 RDW 13.8 Plt Count 190 Neut % (Auto) 88.4 H Lymph % (Auto) 6.5 L [place] % (Auto) 4.5 Eos % (Auto) 0.5 L Baso % (Auto) 0.1 Neut # (Auto) 05314 H Lymph # (Auto) 800 L [place] # (Auto) 600 Eos # (Auto) 100 Baso # (Auto) 0 Sodium 132 L Potassium 4.7 Chloride 96 L Carbon Dioxide 21 L BUN 21 H Creatinine 0.93 Estimated GFR > 60.0 BUN/Creatinine Ratio 22.6 H Glucose 292 H Hemoglobin A1c Lactate 1.2 Calcium 9.5 Magnesium Total Bilirubin 0.7 AST 29 ALT 21 Alkaline Phosphatase 87 Total Protein 7.5 Albumin 4.5 Globulin 3.0 Albumin/Globulin Ratio 1.5 Triglycerides Lipase 1042 H Procalcitonin 0.09 Urine Color Urine Appearance Urine pH Ur Specific [place] Urine Protein Urine Glucose (UA) Urine Ketones Urine Occult Blood Urine Nitrate Urine Bilirubin Urine Urobilinogen Ur Leukocyte Esterase Urine RBC Urine WBC Ur Squamous Epith Cells Urine Bacteria Ur Culture Indicated? SARS-CoV-2 (PCR) 06/13/21 06/13/21 06/13/21 20:22 20:22 20:43 WBC RBC Hgb Hct MCV MCH MCHC RDW Plt Count Neut % (Auto) Lymph % (Auto) [place] % (Auto) Eos % (Auto) Baso % (Auto) Neut # (Auto) Lymph # (Auto) [place] # (Auto) Eos # (Auto) Baso # (Auto) Sodium Potassium Chloride Carbon Dioxide BUN Creatinine Estimated GFR BUN/Creatinine Ratio Glucose Hemoglobin A1c 10.4 H Lactate Calcium Magnesium 1.8 Total Bilirubin AST ALT Alkaline Phosphatase Total Protein Albumin Globulin Albumin/Globulin Ratio Triglycerides Lipase Procalcitonin Urine Color Yellow Urine Appearance Clear Urine pH 5.0 Ur Specific [place] 1.020 Urine Protein Trace H Urine Glucose (UA) 1+ H Urine Ketones 3+ H Urine Occult Blood Trace-intact Urine Nitrate Negative Urine Bilirubin Negative Urine Urobilinogen 0.2 Ur Leukocyte Esterase Negative Urine RBC 0-1/hpf Urine WBC 0-1/hpf Ur Squamous Epith Cells 0-1 /hpf Urine Bacteria None seen Ur Culture Indicated? Cult not indicated SARS-CoV-2 (PCR) 06/14/21 06/14/21 06/14/21 00:18 12:37 12:37 WBC RBC Hgb Hct MCV MCH MCHC RDW Plt Count Neut % (Auto) Lymph % (Auto) [place] % (Auto) Eos % (Auto) Baso % (Auto) Neut # (Auto) Lymph # (Auto) [place] # (Auto) Eos # (Auto) Baso # (Auto) Sodium 135 L Potassium 4.2 Chloride 107 Carbon Dioxide 22 BUN 14 Creatinine 0.67 Estimated GFR > 60.0 BUN/Creatinine Ratio 20.9 Glucose 239 H Hemoglobin A1c Lactate Calcium 8.6 Magnesium Total Bilirubin AST ALT Alkaline Phosphatase Total Protein Albumin Globulin Albumin/Globulin Ratio Triglycerides 131 Lipase Procalcitonin Urine Color Urine Appearance Urine pH Ur Specific [place] Urine Protein Urine Glucose (UA) Urine Ketones Urine Occult Blood Urine Nitrate Urine Bilirubin Urine Urobilinogen Ur Leukocyte Esterase Urine RBC Urine WBC Ur Squamous Epith Cells Urine Bacteria Ur Culture Indicated? SARS-CoV-2 (PCR) Negative 06/14/21 12:37 WBC 6.2 D RBC 3.79 L Hgb 11.2 L Hct 32.5 L MCV 85.6 MCH 29.4 MCHC 34.3 RDW 13.6 Plt Count 144 L Neut % (Auto) 73.4 Lymph % (Auto) 17.4 L [place] % (Auto) 8.1 Eos % (Auto) 0.9 L Baso % (Auto) 0.2 Neut # (Auto) 4600 Lymph # (Auto) 1100 [place] # (Auto) 500 Eos # (Auto) 100 Baso # (Auto) 0 Sodium Potassium Chloride Carbon Dioxide BUN Creatinine Estimated GFR BUN/Creatinine Ratio Glucose Hemoglobin A1c Lactate Calcium Magnesium Total Bilirubin AST ALT Alkaline Phosphatase Total Protein Albumin Globulin Albumin/Globulin Ratio Triglycerides Lipase Procalcitonin Urine Color Urine Appearance Urine pH Ur Specific [place] Urine Protein Urine Glucose (UA) Urine Ketones Urine Occult Blood Urine Nitrate Urine Bilirubin Urine Urobilinogen Ur Leukocyte Esterase Urine RBC Urine WBC Ur Squamous Epith Cells Urine Bacteria Ur Culture Indicated? SARS-CoV-2 (PCR) Assessment & Plan Assessment & Plan narrative: Assessment: 1. Obstructing 8 mm left distal ureteral calculus. 2. Intractable left renal colic. 3. Clinical history and recent presentation consistent with pancreatitis per hospitalist service. Plan: 1. Proceed to cystoscopy/placement left ureteral stent. Reviewed findings and discussed impression. Given background issue of pancreatitis, patient's residency in the [facility] (planning to return following current visit was family), and position of the stone at the pelvic brim, I provided the rationale for cystoscopy and placement of left ureteral stent. Further explained the definitive therapy will involve laser lithotripsy and recommended this be done when she gets home. Explain the common side effects, possible complications, perioperative limitations/restrictions, and reasonable expectations of outcomes and recovery following cystoscopy and left ureteral stent placement. Both her and her sister had several further clarifying questions which were addressed to their satisfaction at the encounter. They wished to proceed.
--- NOTE | 2021-06-14 15:51 | PM.PREOP ---
Pre-operative Note Interval Note History & Physical reviewed/Exam performed by Physician: Yes Changes to H&P: No
--- NOTE | 2021-06-14 16:23 | SUR.OPER ---
Lithotomy on padded OR bed, head on pillow, arms secured on padded arm boards at <90 degrees abduction. Legs secured in padded yellow fins stirrups.
--- NOTE | 2021-06-14 16:37 | PM.OP.1 ---
Operative Date/Time/Diagnoses Date of procedure: 06/14/21 Time of procedure: 16:37 Pre-op diagnosis: Obstructing 8 mm left distal ureteral calculus Intractable left renal colic Post-op diagnosis: same Procedure & Clinicians Procedure: 1. Cystoscopy and left ureteral stone manipulation without removal. 2. Cystoscopy and placement left ureteral stent (7 Mozambican by 22-32 cm multi-length). Same procedure as scheduled: Yes Indications: 1. Obstructing 8 mm left distal ureteral calculus. 2. Intractable left renal colic. Surgeon: Racheal Vallejo Click Yes if Unassisted: Yes Anesthesia Type: General Operative Notes Findings: 1. Urethral meatus in normal position with marked loss of the UV angle. 2. Grade 3 cystocele. 3. Bladder has trace trabeculation. Normal ureteral orifices bilaterally. No stone tumor foreign body visualized. Closure Type: not applicable Specimen(s): none sent Applied: other (#7F x 22-32cm multi length stent) Estimated Blood Loss (mL): 0 Blood products transfused: none Procedure in detail: Patient was positioned in supine was administered general anesthesia. Lower abdomen, groin, and genitalia were then prepped and draped in sterile fashion. Twenty-two Mozambican panendoscope was then passed lower urinary tract with findings as described above. A 0.45 hybrid guidewire was then selected and advanced into the left ureteral orifice under direct and fluoroscopic guidance. A 7 Mozambican by 22-32 cm multi-length stent was then selected. This too was then advanced over the hybrid guidewire under direct and fluoroscopic guidance. NO RETRIEVAL LINE WAS LEFT ATTACHED. The bladder was then drained completely and all instrumentation was removed. Patient was repositioned in supine, was awakened, transferred to a gurney, and transferred to recovery in stable condition. Complications: none Post-operative Condition: stable Disposition: PACU Plan for aftercare: Admit hospitalist service.
--- NOTE | 2021-06-14 16:59 | SUR.PHASEI ---
Awake, tolerating PO well, spoke with Dr. Vallejo. Color pink, denies pain/nausea.
--- NOTE | 2021-06-14 17:22 | SUR.PHASEI ---
report called to the floor. Patient awake, oriented, pain/nausea free, VSS. Message left with DI to obtain films for her return home tomorrow.
--- NOTE | 2021-06-14 17:39 | SUR.PHASEI ---
1725 550 ml LR infused kn surgical services.
--- NOTE | 2021-06-14 17:41 | SUR.PHASEI ---
1725 continued. Patient to room 210, family present. Nursing staff present. Patient ambulated directly from the stretcher into the bathroom. No questions for patient or staff.
[2021-06-14] MEDS: DEXTROSE 5%-0.45% NS 1,000 ML 125 ML IV (17:58)
--- NOTE | 2021-06-14 23:24 | PC.NURSE ---
1735: arrived from PACU, patient ambulatory, denies pain/discomfort. copious chakraborty colored urine to hat. tele d/c'd. patient eager to d/c home as she has flight to [place] in the morning. hospitalist to see patient, sister rooming in encouraged patient to stay overnight. MD agreed, will d/c in the morning. tolerated carb control diet, insulins self -admin per order. denies flank pain.
[2021-06-14] MEDS: HYDROCODONE/ACET 5/325 TABLET 1 TAB PO (23:37)
--- NOTE | 2021-06-15 00:47 | PC.NURSE ---
Patient is alert and oriented. Breath sounds CTA with RA sat of 95%; on continuous oximetry due to history of sleep apnea. HRR. BP elevated at 150/73 and has been labile. Denies nausea. BT hypoactive but states she has been passing flatus; has not had BM since 06/11. Complains of slight burning at initiation of voiding and has had some frequency/urgency which she states is related to having received several bags of IVF; is now saline locked. Urine is dark red but clear with no clots; does reports she had several small clots previously. Is able to move self in bed and is up to bathroom independently and is steady on feet. Refusing to wear SCD's so reminded to ankle wave. Initially denied pain but after being up to bathroom states she is having left flank pain and rated severity as 5/10 so medicated with Vicodin and is currently asleep. Fall risk score is moderate. Sister rooming in.
[2021-06-15 06:00] VITALS: BP 139/62; PULSE 88; RESP 16; TEMP 36.8; O2SAT 99
--- NOTE | 2021-06-15 07:34 | PM.DS.1 ---
History of Present Illness History of Present Illness Date Patient Seen: 06/15/21 Time Patient Seen: 07:45 Chief complaint: Left sided renal calculi, pancreatitis, pain Narrative: DANISH Boyd: Byron Perera is a 60 y.o. female w/diabetes type 2, sarcoidosis, and essential hypertension from [place], [place] was travelling with her sisters to see their elderly father who lives in [facility] was in her usual state of health when 2 days ago she was eating out and felt like there was a boulder on the left flank area. She returned from the bathroom, and began to feel pain on the anterior left side. She had one vomiting episode, subsequently she and her sisters drove over to [facility] where she was assessed in their ER, diagnosed with a 7 mm renal stone in her left ureter. She was discharged on hydrocodone and oral cipro. Today, she felt like she had a fever, sister purchased a thermometer and she had a temparature of 99.3. She started to vomit again this morning. She denies dysurea, but stated she saw a leroy of blood on urination. She has had a history of kidney stones once in 1993, another in 1997. She has a persistent dry cough she attributes to sarcoidosis, denies shortness of breath or chest pain, denies mid-epigastric pain, diarrhea or constipation. She states her PCP in [place] has been trying to wean her off of insulin and believes her A1c is around [address] of the abdomen and pelvis indicated the followin. Stable position of 9 mm left distal ureteral calcification at the pelvic inlet. 2. Slight worsening of perinephric and left retroperitoneal inflammation without significant change in the degree of hydronephrosis. 3. No movement in nonobstructing right intrarenal calcification. Chest xray was unremarkable, likely with chronic findings of: 1. Mild peribronchial thickening and diffuse interstitial thickening may indicate a viral pneumonitis. No dense consolidations. 2. Mild cardiomegaly without CHF. She was initiated on IV ceftriaxone and Cipro in the ED. Temp is 97.1?, blood pressure 145/70, heart rate 96, respiratory rate of 18, oxygen saturation 97% on room air, she weighs 82.5 kg with a BMI of 29.2. She has an elevated WBC of 12.8 platelet count is 190, she has a left shift of 11,400, sodium 132, potassium 4.7, chloride 96, bicarb 21, BUN 21, creatinine 0.93, GFR is normal, glucose 292 with hemoglobin A1c of 10.4, lactate is normal, lipase is 1042, procalcitonin 0.09, COVID-19 PCR is negative, urinalysis is negative for UTI or blood though it does indicate ketones glucose and protein. Discharge Providers Provider Date of admission: 06/14/21 00:30 Discharge Date: 06/15/21 Consults: 06/14/21 00:42 Consult to Physician Routine Comment: Consulting Provider: Racheal Vallejo Reason for consultation: large renal calculus Has provider been notified: Yes Discharge provider: Jonathan Lieberman DO Summary Hospital Course Discharge Diagnosis: 1. obstructing left renal calculus, improved, present on admission 2. Elevated lipase level, present on admission 3. Diabetes type 2 poorly controlled and present on admission. 4. Essential hypertension, chronic Hospital Course: This is a 60-year-old female with a past medical history of hypertension and diabetes who was admitted with an obstructing kidney stone on the left. She was also found to have an elevated lipase level but her pain was more consistent with a renal colic and she had no active inflammation her pancreas noted on CT imaging. She was tolerating a diet shortly after admission once her pain had improved with IV medications. She was seen by Urology and underwent stenting for her left renal calculus with improvement in her symptoms. She had minimal cramping left-sided pain and was discharged the following morning after interventions. At that time, she was tolerating a regular diet without significant abdominal pain. This seemingly suggests less likely pancreatitis. However, given her elevated lipase level and she does report a prior history of pancreatitis I would not recommend continuing Trulicity. The patient lives in [place] and will follow-up with her primary care provider there for continue diabetes management, she also has a urologist there and plans to follow-up with them for further management of her left ureteral stent. Her urine cultures showed no growth in her urinalysis was negative on admission. Discussed with Urology and she is not recommended for continued antibiotics upon discharge. Time Spent with Patient Time spent: Greater than 30 minutes Exam Vital Signs (past 8 hours): - 06/15/21 06:00 Temperature 98.2 F Pulse Rate 88 Respiratory Rate 16 Blood Pressure 139/62 Pulse Oximetry 99 Oxygen Delivery Method Room Air Oxygen Flow Rate 0 Narrative Exam Narrative: Gen: Alert, oriented, well-developed 60 y.o. female, NAD HEENT: normocephalic, atraumatic, conjunctiva clear, sclera non-icteric, oral mucosa pink and moist Neck: supple, full ROM, no JVD, trachea is midline Resp: Lungs CTA, non-labored breathing CV: RRR, no murmur or rubs Abd: soft, non-tender, non-distended. Skin: no lesions or rashes, dry and intact Neuro: Alert and oriented X 4 w/no focal deficits. Speech clear and coherent. Extremities: no edema or joint effusions. Psyche: normal mood and affect. Objective Labs Result Diagrams: 06/14/21 12:37 06/14/21 12:37 Labs: Laboratory Results - last 24 hr 06/14/21 06/14/21 06/14/21 12:37 12:37 12:37 WBC 6.2 D RBC 3.79 L Hgb 11.2 L Hct 32.5 L MCV 85.6 MCH 29.4 MCHC 34.3 RDW 13.6 Plt Count 144 L Neut % (Auto) 73.4 Lymph % (Auto) 17.4 L [place] % (Auto) 8.1 Eos % (Auto) 0.9 L Baso % (Auto) 0.2 Neut # (Auto) 4600 Lymph # (Auto) 1100 [place] # (Auto) 500 Eos # (Auto) 100 Baso # (Auto) 0 Sodium 135 L Potassium 4.2 Chloride 107 Carbon Dioxide 22 BUN 14 Creatinine 0.67 Estimated GFR > 60.0 BUN/Creatinine Ratio 20.9 Glucose 239 H Calcium 8.6 Triglycerides 131 PFSH Medical History Diabetes type 2, uncontrolled Essential hypertension Recurrent kidney stones Sarcoidosis Surgical History Hx of cataract surgery Hx of cholecystectomy Family History Mother Myocardial infarction CAD (coronary artery disease) Father Myocardial infarction Diabetes mellitus Social History household members: family Smoking Status: Never smoker alcohol intake: never Discharge Plan Discharge Plan Patient Disposition: Home Provider Discharge Comment: You were admitted to the hospital with a kidney stone, you had a stent placed due to obstruction. Your urine appears to not have had an infection at this time. Please follow up with your urologist at home. Your lipase level was elevated but you pain was more consitent with a kidney stone and imaging did not show any inflammation of your pancreas. I would not recommend trulicity given your history of pancreatitis and this elevated lipase. Discharge orders & Medications Prescriptions: Continued losartan [Cozaar] 25 mg tablet 25 mg PO DAILY RF: 0 metformin 500 mg tablet extended release 24 hr 1,000 mg PO BID RF: 0 Novolin R Regular U-100 Insuln 100 unit/mL solution 15 sliding scale dose SUBCUT 3XW RF: 0 potassium citrate 15 mEq tablet extended release 15 meq PO DAILY RF: 0 tamsulosin [Flomax] 0.4 mg capsule 0.4 mg PO DAILY 30 Days Qty: 30 RF: 0 ondansetron 4 mg tablet,disintegrating 4 mg PO TID PRN (Reason: nausea.) 14 Days Qty: 30 RF: 0 hydrocodone-acetaminophen 5-300 mg Tablet 1 tab PO Q6HR PRN (Reason: pain) 7 Days Qty: 15 RF: 0 Discontinued Trulicity 3 mg/0.5 mL pen injector 3 mg SUBCUT WEEKLY RF: 0 Diet/Activity/Treatments Diet: Diet as Tolerated and Carb-consistent/Diabetic Activity: As tolerated Visit Report/Discharge Packet Instructions: DI for Cystoscopy Quality VTE Deep Vein Thrombosis/Pulmonary Embolism Present on Admission: No
[2021-06-15 08:00] VITALS: BP 145/69; PULSE 89; RESP 16; TEMP 36.6; O2SAT 98
[2021-06-15] MEDS: ACETAMINOPHEN 325 MG TABLET 650 MG PO (08:03)
[2021-06-15] MEDS: TAMSULOSIN 0.4 MG CAPSULE PO (08:03)
[2021-06-15] MEDS: INSULIN GLARGINE 100 UNIT/ML 3ML PEN 10 UNIT SUBCUT (08:04)
[2021-06-15] MEDS: INSULIN LISPRO 100 UNIT/ML 3ML VIAL SUBCUT (08:05)
[2021-06-15] MEDS: SODIUM CHLORIDE 0.9% FLUSH 10 ML IV (08:06)
[2021-06-15] MEDS: LOSARTAN 25 MG TABLET PO (08:32)
[2021-06-15] MEDS: HYDROCODONE/ACET 5/325 TABLET 1 TAB PO (08:49)
--- NOTE | 2021-06-15 09:05 | PC.NURSE ---
Went over dc instructions and medications with patient, questions answered. Rx sent electronically to [facility]. Patient taken via wc to vehicle driven by sister, patient had all belongings.
== END 2021-06-15 09:06 | disposition home or self-care (01) | DRG 694 ==
LOC: ED 06-14 00:27 → AC 06-14 00:30
PROVIDERS: Internal Medicine; Specialist; Admitting Provider Nurse Practitioner Family; Emergency Provider Emergency Medicine; Referring Provider Emergency Medicine; Visit Provider Nurse Practitioner Family
PROC: 0T9780Z Drainage of Left Ureter with Drainage Device, Via Natural or Artificial Opening Endoscopic (ICD-10-PCS; principal; 2021-06-14 15:30)
DX: N20.1 Calculus of ureter (principal); E11.65 Type 2 diabetes mellitus with hyperglycemia; Z79.84 Long term (current) use of oral hypoglycemic drugs; I10 Essential (primary) hypertension; Z20.822 Contact with and (suspected) exposure to COVID-19
CPT/HCPCS: 36415; 52330; 52332; 71045; 74018; 74177; 76000; 80048; 80053; 81001; 82962; 83036; 83605; 83690; 83735; 84145; 84478; 85025; 87040; 87086; 87635; 93005; 94760; 94762; 96361; 96365; 96366; 96367; 96375; 99222; 99233; 99284; C9803; J0690; J0696; J0744; J1815; J1885; J2405; J2704; J2765; J3010; Q9967